=== PATIENT | male | born 1985 | race Caucasian/White ===

== ENCOUNTER 2023-10-03 05:33 | Emergency (ER) | payer OTHER, SELFPAY ==
[2023-10-03] VITALS (8 sets, daily range): BP systolic 144–162; BP diastolic 98–118; PULSE 81–96; RESP 13–22; TEMP 35.8–37; O2SAT 95–100
--- NOTE | ~2023-10-03 | XR_ITS ---
EXAMINATION: XR shoulder RT min 2V DATE: 10/03/2023 05:51 INDICATION: Right shoulder deformity. TECHNIQUE: 3 views of right shoulder were obtained. COMPARISON: Right shoulder radiographs 02/15/16 FINDINGS: There is anterior dislocation of humeral head with respect to glenoid. No fracture. There i s mild osteoarthritis of acromioclavicular joint. IMPRESSION: 1. Anterior right shoulder dislocation. Reviewed, dictated and finalized at location A. [place] PHARMACIST
--- NOTE | ~2023-10-03 | XR_ITS ---
EXAMINATION: XR shoulder RT min 2V DATE: 10/03/2023 06:07 INDICATION: Right shoulder dislocation status post reduction. TECHNIQUE: 3 views of right shoulder were obtained. COMPARISON: Right shoulder radiographs at 5:47 AM FINDINGS: Bone alignment is normal. There is impaction fracture deformity of posterolateral aspect of humeral head (Hill-Sachs fracture deformity). There is a fracture of anteroinferior glenoid (bony Ba nkart lesion). There is mild osteoarthritis of acromioclavicular joint. Glenohumeral joint is not wel l profiled. IMPRESSION: 1. Hill-Sachs fracture deformity. 2. Bony Bankart lesion. Reviewed, dictated and finalized at location A. [place]
--- NOTE | 2023-10-03 05:41 | ED.GENADULT ---
HPI - General Adult General Chief complaint: Extremity Problem,Nontraumatic Stated complaint: shoulder pain Time Seen by Provider: 10/03/23 05:36 History of Present Illness HPI narrative: Patient is a 38-year-old gentleman presents emergency department with chief complaint of right shoulder pain. Patient reports he has had prior dislocations of his right shoulder and reports that this evening he woke up from sleep moaning and his right shoulder was unable to be moved due to shoulder dislocation. The patient reports no trauma that he knows of reports that he feels kind of sore and tired patient reports that he has no numbness or tingling Related Data Allergies Allergy/AdvReac Type Severity Reaction Status Date / Time No Known Allergies Allergy Verified 10/03/23 05:36 Review of Systems Review of Systems: A 10 system review of systems was completed on the patient and is negative except for what is stated in the HPI. Nursing and ancillary documentation was reviewed. [facility] Past Medical History Medical History Healthy adult Social History Social History Smoking status: Never smoker Gender identity (if verbalized by the patient): Male Exam Narrative: GENERAL: Well-appearing, well-nourished, and in no acute distress. HEAD: Normocephalic, atraumatic. EYES: PERRLA and EOMI. ENT: Nares clear, no rhinorrhea or epistaxis. Mucous membranes moist. NECK: Supple. CHEST: Clear to auscultation. No respiratory distress. HEART: Regular rate and rhythm. No murmur heard. Normal peripheral pulses. ABDOMEN: Soft, nontender, nondistended, normal active bowel sounds. EXTREMITIES: Normal range of motion in all extremities except for right upper extremity. There is a anterior shoulder dislocation deformity of the right shoulder. No edema. SKIN: Warm, dry, no rash. NEURO: No focal deficits. Alert and oriented x3. PSYCH: Normal mood and affect. Course Vital Signs Vital signs: Vital Signs Temperature 37.0 C 10/03/23 05:28 Pulse Rate 84 10/03/23 05:28 Respiratory Rate 15 10/03/23 05:28 Blood Pressure 156/118 H 10/03/23 05:28 Pulse Oximetry 97 10/03/23 05:28 Oxygen Delivery Room Air 10/03/23 05:28 Temperature 36.4 C 10/03/23 06:12 Pulse Rate 83 10/03/23 06:12 Respiratory Rate 13 10/03/23 06:12 Blood Pressure 156/110 H 10/03/23 06:12 Pulse Oximetry 97 10/03/23 06:12 Oxygen Delivery Room Air 10/03/23 06:12 Procedures Orthopedic Joint Reduction Joint #1: Orthopedic Joint Reduction Date: 10/03/23 Orthopedic Joint Reduction Time: 06:05 Time Out Performed: Yes Side: right Joint Reduction Location: shoulder Analgesia: procedural sedation Pre-Procedure Neuro Vascular Exam: normal Shoulder Technique Used (if applicable): Charles Post-reduction neuro exam: intact Post-reduction vascular: intact Post Reduction X-Ray Obtained: Yes Post Reduction X-Ray Results: reduced Splint Applied: Yes Patient Tolerated Procedure: well Procedural Sedation Procedural Sedation #1: Presedation Evaluation: Conscious alert oriented patient with pain and deformity of the right shoulder Procedure: Close reduction of right anterior shoulder dislocation Time Out: Time-out performed immediately before procedure Informed Consent Obtained: yes Plan for Sedation: moderate sedation ASA Class: I Mallampati Classification: class I NPO Status: last solid food (hours ago) (Before bed) and last liquid food (hours ago) (Before bed) Explanation to Patient/Family: Risk/Benefits/Alternatives and Pt/Family agreed with plan Pt. Educated on Procedural Sedation: Yes Re-evaluated immediately prior: Yes Preparation: media monitor applied, pul
[2023-10-03] MEDS: SODIUM CHLORIDE 0.9% IV 1,000 ML 150 ML IV CONT (05:59)
[2023-10-03] MEDS: PROPOFOL IV EMULSION 200 MG/20 ML VIAL 80 MG IV PUSH (05:59)
--- NOTE | 2023-10-03 06:00 | PC.NURSE ---
EDP at bedside with start time of mod sedation at 0550. EDP administered 80 mg of Propofol at 0551 IVP by EDP Brianda. Additional 30 mg of Propofol administered at 0553 due to continued reduction. Additional 40 mg of Propofol administered by EDP at 0554.
[2023-10-03] MEDS: MORPHINE SULFATE (*CRX) 4 MG/ML INJ IV PUSH (06:22)
== END 2023-10-03 06:37 | disposition home or self-care (01) ==
PROVIDERS: Emergency Provider Emergency Medicine
DX: S42.291A Other displaced fracture of upper end of right humerus, initial encounter for closed fracture (principal); S42.141A Displaced fracture of glenoid cavity of scapula, right shoulder, initial encounter for closed fracture; X58.XXXA Exposure to other specified factors, initial encounter
CPT/HCPCS: 23650; 73030; 99285; J2270; J2704; J7030

== ENCOUNTER 2024-07-08 08:04 | Emergency (ER) | payer OTHER, SELFPAY ==
[2024-07-08] VITALS (28 sets, daily range): BP systolic 111–174; BP diastolic 82–112; PULSE 70–111; RESP 13–24; TEMP 36.3–36.9; O2SAT 94–100
--- NOTE | ~2024-07-08 | XR_ITS ---
EXAMINATION: XR shoulder LT min 2V DATE: 07/08/2024 08:35 INDICATION: Left shoulder dislocation. TECHNIQUE: 3 views of left shoulder were obtained. COMPARISON: None. FINDINGS: There is anterior dislocation of humeral head with respect to glenoid. There is an impactio n fracture deformity of posterolateral aspect of humeral head (Hill-Sachs fracture deformity). There is a 3 mm loose body in the glenohumeral joint. The acromioclavicular joint is normal. IMPRESSION: 1. Anterior left shoulder dislocation. 2. Hill-Sachs fracture deformity. 3. 3 mm loose body in the glenohumeral joint. Reviewed, dictated and finalized at location A. R MAINTENANCE SUPERVISOR
--- NOTE | ~2024-07-08 | XR_ITS ---
EXAMINATION: XR shoulder LT min 2V DATE: 07/08/2024 12:18 INDICATION: Left shoulder dislocation status post reduction. TECHNIQUE: 2 views of left shoulder were obtained. COMPARISON: Left shoulder radiographs at 8:20 a.m. FINDINGS: Alignment is normal. No fracture. There is mild osteoarthritis of glenohumeral joint. Acrom ioclavicular joint is normal. IMPRESSION: 1. Normal alignment at glenohumeral joint. 2. Mild glenohumeral joint osteoarthritis. Reviewed, dictated and finalized at location A. IN TECHNICIAN
[2024-07-08] MEDS: HYDROmorphone HCL INJ (*CRX) 1 MG/ML SYR 0.5 MG IV PUSH ×2 (08:19→09:15)
--- NOTE | 2024-07-08 08:48 | ED_ITS ---
HPI - General Adult General Chief complaint: Unspecified Stated complaint: shoulder dislocation Time Seen by Provider: 07/08/24 08:14 Source: patient Mode of arrival: ambulatory Limitations: no limitations History of Present Illness HPI narrative: Right hand dominant male presents with obvious left shoulder deformity. History of shoulder dislocations. Rolled over in his sleep this morning around 7:30 or 7:45am and had acute onset pain. He has previously required sedation and reduction , though most recently on the right. Has seen orthopedic surgeon Dr Guy for this. They had discussed physical therapy versus shoulder exercises at home. He had already previously undergone PT prior to this and felt confident/comfortable with the exercises to perform them at home. Denies any paresthesias, only pain. No prior surgical intervention. Drinks alcohol. Related Data Allergies Allergy/AdvReac Type Severity Reaction Status Date / Time No Known Allergies Allergy Verified 07/08/24 08:13 [facility] Past Medical History Medical History Healthy adult Recurrent shoulder dislocation Right hand dominant Family History Family History Unknown Hypertension Heart disease Arthritis Malignant neoplasm of prostate Social History Social History Social History: caffeine use Smoking status: Former smoker Alcohol intake: current Drinks per week: 2 Substance use: never Occupation/Education: occupation Additional occupation/education comments: [employer]- [employer] Gender identity (if verbalized by the patient): Male Exam Narrative: GENERAL: Well-appearing, well-nourished, in moderate acute distress. HEAD: Normocephalic, atraumatic. EYES: Non injected, non icteric ENT: Nares clear, no rhinorrhea or epistaxis. NECK: Supple. CHEST: Speaking in full sentences. No respiratory distress. HEART: Regular rate and rhythm. Strong left radial pulse. . ABDOMEN: Soft, nondistended. EXTREMITIES: No upper extremity edema. Left arm held abducted. Shoulder appears squared off. SKIN: Warm, dry, no rash. NEURO: No focal deficits. Alert and oriented x3. Sensation intact throughout left arm including over deltoid (axillary nerve) PSYCH: Normal mood and affect. Course Vital Signs Vital signs: Vital Signs Pulse Rate 83 07/08/24 08:08 Respiratory Rate 19 07/08/24 08:08 Blood Pressure 120/88 07/08/24 08:08 Pulse Oximetry 100 07/08/24 08:08 Oxygen Delivery Room Air 07/08/24 08:08 Temperature 98.4 F 07/08/24 13:36 Pulse Rate 99 07/08/24 13:36 Respiratory Rate 17 07/08/24 13:36 Blood Pressure 136/89 07/08/24 13:36 Pulse Oximetry 100 07/08/24 13:36 Oxygen Delivery Room Air 07/08/24 10:53 Oxygen Flow Rate 2 07/08/24 10:31 Procedures Orthopedic Joint Reduction Joint #1: Orthopedic Joint Reduction Date: 07/08/24 Side: left Joint Reduction Location: shoulder Analgesia: procedural sedation Pre-Procedure Neuro Vascular Exam: normal Shoulder Technique Used (if applicable): traction/counter-traction, external rotation, Milch, Charles (modified) and other Additional Comments: unsuccessful despite several attempts Joint #2: Orthopedic Joint Reduction Date: 07/08/24 Side: left Joint Reduction Location: shoulder Analgesia: procedural sedation Pre-Procedure Neuro Vascular Exam: normal Shoulder Technique Used (if applicable): traction/counter-traction, external rotation, Milch and other Additional Comments: Performed primarily by Dr Marks performing manipulation of joint with myself assisting for humeral head stabiliation and counter traction as needed. U nsuccesul after many attempts. Procedural Sedation Procedural Sedation #1: Procedural Sedation Date: 07/08/24 Presedation Evaluation: neurovascularly intact Procedure: attempted left shoulder dislocation reduction Provider Performed: sedation and procedure Equipment in Room: bag and mask, capnography, hybrid technologist, crash cart, oxygen, pulse oximeter and suction Plan for Sedation: moderate sedation ASA Class: I Mallampati Classification: class I NPO Status: last solid food (hours ago) Explanation to Patient/Family: Risk/Benefits/Alternatives Preparation: hybrid technologist applied and pulse oximeter Midazolam dose (mg): 2 IV Propofol dose (mg): 200 Procedural Sedation #2: Procedural Sedation Date: 07/08/24 Procedure: Performed by Dr Sadler with myself assisting. Dr Sadler administered ketamine initially. 50mg propofol administered by myself during dislocation reduction attempt. Equipment in Room: bag and mask, capnography, hybrid technologist, crash cart, oxygen, pulse oximeter and suction Plan for Sedation: moderate sedation NPO Status: last solid food (hours ago) Preparation: hybrid technologist applied, pulse oximeter, capnometry used, supplemental O2 applied, suction/airway equipment at bedside and IV secured Ketamine: IV Ketamine dose (mg): 80 IV Propofol dose (mg): 50 Medical Decision Making MDM Narrative Medical decision making narrative: Right hand dominant male presents with obvious left shoulder dislocation he sustained when he rolled over in bed. History of recurrent shoulder dislocations, most recently on the right and requiring procedural sedation with 140mg propofol per review of EMR. In the ED he is afebrile with VS within normal limits. Patient initially given 0.5 mg of Dilaudid upon arrival and 0.5 mg of Dilaudid prior to reduction attempt. Attempted procedural/moderate sedation and dislocation reduction at bedside. Patient was initially given 100 mg of propofol followed by an additional 50 mg and later 50mg more. In addition given 0.5 mg of Dilaudid and 2mg Versed. See above. Unsuccessful reduction attempt. Patient given additional analgesic medication. Patient underwent second procedural sedation and dislocation attempts with Dr Sadler as above. Successful sedation but unsuccessful reduction. Discussed patient with overhead distribution engineer orthopedic surgeon, whom he has previously seen in outpatient setting. Patient given additional IV analgesic medication while await Dr Guy who will attempt reduction at bedside with anesthesia performing sedation. Patient confirms last oral intake was last night, dinner. Anesthesia and Orthopedic surgeon Dr Guy come to bedside and performed sedation and dislocation reduction. See their separate documentation. Patient is neurovascularly intact afterwards. Initially somnolent but protecting airway and hemodynamically stable. Remained in the ED until alert and oriented. Patient is prescribed [id number] acetaminophen and NSAIDs. For breakthrough pain he is also prescribed short course of opiate medication and instructed on safe usage. [place] prescription monitoring program database is reviewed which does show that patient receives monthly fills of mixed amphetamine salt. Advised to follow up with Dr Guy outpatient. Differential Diagnosis Differential Diagnosis: shoulder dislocation; considered neurovascular injury; considered associated fracture Vital Signs Vital Signs: Vital Signs Pulse Rate 83 07/08/24 08:08 Respiratory Rate 19 07/08/24 08:08 Blood Pressure 120/88 07/08/24 08:08 Pulse Oximetry 100 07/08/24 08:08 Oxygen Delivery Room Air 07/08/24 08:08 Temperature 98.4 F 07/08/24 13:36 Pulse Rate 99 07/08/24 13:36 Respiratory Rate 17 07/08/24 13:36 Blood Pressure 136/89 07/08/24 13:36 Pulse Oximetry 100 07/08/24 13:36 Oxygen Delivery Room Air 07/08/24 10:53 Oxygen Flow Rate 2 07/08/24 10:31 Imaging Data Attestation: I personally reviewed and interpreted this imaging study as follows: My impression: Appreciable anterior shoulder dislocation on initial Xray Radiologist's impression: Impressions Shoulder X-Ray 07/08/24 08:36 IMPRESSION: 1. Anterior left shoulder dislocation. 2. Hill-Sachs fracture deformity. 3. 3 mm loose body in the glenohumeral joint. Shoulder X-Ray 07/08/24 12:19 IMPRESSION: 1. Normal alignment at glenohumeral joint. 2. Mild glenohumeral joint osteoarthritis. Discharge Plan Discharge Clinical Impression: Loose body in joint, Osteoarthritis of left glenohumeral joint Anterior dislocation of left shoulder Qualifiers: Encounter type: initial encounter Qualified Code(s): S43.015A - Anterior dislocation of left humerus, initial encounter Hill-Sachs fracture Qualifiers: Fracture type: closed Laterality: left Patient Disposition: Home, Self-Care Condition: Stable Instructions: Antibiotic Form, Osteoarthritis (DC), Narcotic Safety (ED), Early Postoperative or Post Injury Shoulder Exercises (ED), Procedural Sedation (ED), Shoulder Immobilizer (ED) Additional Instructions: Follow-up with orthopedic surgeon Dr. Guy. Call the office to make an appointment. Return to the emergency department with any new or worsening symptoms. Acetaminophen/Tylenol (maximum 4000 mg per day) is safe to take with NSAIDs (ibuprofen/Motrin) for pain relief. If you have breakthrough pain beyond that, a short course of opiate medications have also been prescribed. Remember that each of these tablets contains 325 mg of acetaminophen so take that into account so that you do not accidentally overdose on acetaminophen. Prescriptions: New ibuprofen 600 mg tablet 600 mg PO TID PRN (Reason: pain) Qty: 30 0RF acetaminophen 500 mg capsule 1,000 mg PO Q6H PRN (Reason: pain) Qty: 30 0RF hydrocodone-acetaminophen 5-325 mg tablet 1 tablet PO Q8H PRN (Reason: pain) Qty: 12 0RF No Action sulfamethoxazole-trimethoprim [Bactrim DS] 800-160 mg tablet 1 tablet PO Q12H Qty: 14 0RF cephalexin [Keflex] 500 mg capsule 500 mg PO Q8H Qty: 21 0RF hydrocodone-acetaminophen 5-325 mg tablet 1 tablet PO Q6H PRN (Reason: pain) 3 Days Qty: 12 0RF Follow-up/Referrals: Stewart Guy MD [Physician] - (Orthopedics) PHYSICIAN,[employer] [Primary Care Provider] - Stand Alone Forms: Work/School Release IP Time of Disposition: 13:06
[2024-07-08] MEDS: PROPOFOL IV EMULSION 200 MG/20 ML VIAL 120 MG IV PUSH (09:23)
--- NOTE | 2024-07-08 09:24 | PC.NURSE ---
0856-time out performed 0903-100mg of propofol administered by Dr Young 0905-50mg propofol administered by Dr Young 0908-50mg propofol administered by Dr Young-patient drowsy, but continues to remain stiff and pull away from provider when attempting to reduce shoulder 0913-verbal order given for 2mg versed by Dr Young and administered by Dr Young. 0914-Verbal order from Dr Young for 0.5mg of Dilaudid to be given to patient
--- NOTE | 2024-07-08 09:27 | PC.NURSE ---
0920-Dr Young was unsuccessful in reducing patient dislocation. Provider states we will do pain control until another provider comes and we can attempt again.
--- NOTE | 2024-07-08 09:29 | PC.NURSE ---
PMS intact distal to the dislocation
[2024-07-08] MEDS: HYDROmorphone HCL INJ (*CRX) 1 MG/ML SYR IV PUSH (09:44)
[2024-07-08] MEDS: MIDAZOLAM HCL (*CRX) 2 MG/2 ML VIAL IV PUSH (09:48)
[2024-07-08] MEDS: KETAMINE HCL (*CRX) 500 MG/10 ML VIAL 80 MG IV PUSH (10:26)
--- NOTE | 2024-07-08 10:35 | PC.NURSE ---
1024-80mg ketamine given by Dr Sadler 1028-50mg propofol given by Dr Young Procedure was unsuccessful
--- NOTE | 2024-07-08 10:37 | PC.NURSE ---
patient fully awake at this time
[2024-07-08] MEDS: SODIUM CHLORIDE 0.9% IV 1,000 ML 1000 ML (10:48)
[2024-07-08] MEDS: fentaNYL CITRATE INJ (*CRX) 100 MCG/2 ML VIAL 50 MCG IV PUSH (10:55)
--- NOTE | 2024-07-08 11:47 | WPDANESEPPF ---
Anes - Initial Pre Proc Eval Date/Time: 07/08/24 11:47 Pre Op Diagnosis: shoulder dislocation Patient Data Age: 39 Gender: M Height: 1.88 m Weight: 80.1 kg Last Vital Signs Temp 98 F 07/08/24 10:53 Pulse 104 H 07/08/24 10:53 Resp 17 07/08/24 10:53 BP 150/97 H 07/08/24 10:53 Pulse Ox 100 07/08/24 10:53 O2 Del Method Room Air 07/08/24 10:53 O2 Flow Rate 2 07/08/24 10:31 Allergies Allergy/AdvReac Type Severity Reaction Status Date / Time No Known Allergies Allergy Verified 07/08/24 08:13 Home Medications Medication Instructions Recorded Confirmed Type cephalexin 500 mg capsule (Keflex) 500 mg PO Q8H #21 caps 06/14/19 12/07/23 Rx sulfamethoxazole 800 1 tablet PO Q12H #14 tabs 06/14/19 12/07/23 Rx mg-trimethoprim 160 mg tablet (Bactrim DS) hydrocodone 5 mg-acetaminophen 325 1 tablet PO Q6H PRN pain 3 days 10/03/23 12/07/23 Rx mg tablet #12 tabs Patient hx anesthesia problems: none Family hx anesthesia problems: none Results Review: All pre-operative results and documents have been reviewed as part of the pre-operative evaluation. 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 Pt is ex smoker, ex vaper, still drinks ETOH perhaps 6 beers/night. Apparent prev clinical exam was neg for Terrance danlos. Will proceed w sedation for attempted reduction of shoulder disolocation. Informed Consent: The patient's anesthetic plan and its attendant risks and benefits were discussed with the patient/family/POA. Questions were solicited and answers provided to the satisfaction of the patient/family/POA.
[2024-07-08] MEDS: SODIUM CHLORIDE 0.9% IV 1,000 ML 999 ML (12:01)
--- NOTE | 2024-07-08 12:21 | P.CONOP_ITS ---
Assessment and Plan Assessment and plan (1) Anterior dislocation of left shoulder: Qualifiers: Encounter type: initial encounter Qualified Code(s): S43.015A - Anterior dislocation of left humerus, initial encounter Code(s): S43.015A - Anterior dislocation of left humerus, initial encounter Status: Acute Assessment and Plan: Acute left anterior shoulder dislocation. History of previous dislocations which patient has been able to reduce on his own. Unable to do so with this event. Presented to the emergency room. Emergency room unable to reduce the shoulder. Discussed with the patient. Recommend anesthesiology assistance for sedation with attempted repeat closed reduction. Risks, benefits and alternatives discussed in detail. Patient's questions were answered and he gives informed consent and would like to proceed. Plan Addendum: Closed reduction successful after sedation with Anesthesiology. Recommend shoulder immobilizer, pain medication. Follow-up in the orthopedic office in 1-2 weeks. History of Present Illness HPI Consult date: 07/08/24 Requesting physician: Christen Young MD Chief complaint: shoulder dislocation Narrative: 39-year-old man known to the Orthopedic service for previous shoulder dislocations. Presented to the emergency room this morning after rolling over and feeling the left shoulder dislocate. Unable to reduce on own. He has a history of previous dislocations of the left and right shoulder. Denies numbness or tingling. Review of Systems Constitutional: Constitutional: Denies fever(s) Eyes: Eyes: Denies blurry vision ENT: Reports Normal hearing present Cardiovascular: Cardiovascular: Denies chest pain and Denies dyspnea Respiratory: Respiratory: Denies dyspnea and Denies wheezing Gastrointestinal: Gastrointestinal: Denies abdominal pain Genitourinary: Genitourinary: Denies urinary urgency Musculoskeletal: Musculoskeletal: Reports as per HPI and Denies numbness Integumentary/Breasts: Skin/Breast: Denies changing lesions and Denies sores Neurologic: Reports Normal hearing present, Denies behavioral changes, Denies confusion, Denies numbness and Denies convulsions Psychiatric: Psychiatric: Denies behavioral changes, Denies confusion and Denies hallucinations Endocrine: Endocrine: Denies heat intolerance Hematologic/Lymphatic: Hematologic/Lymphatic: Denies easy bleeding Allergic/Immunologic: Allergic/Immunologic: Denies wheezing PMFSH Past Medical History Medical History Healthy adult Family History Family History Unknown Hypertension Heart disease Arthritis Malignant neoplasm of prostate Social History Social History Social History: caffeine use Smoking status: Former smoker Alcohol intake: current Drinks per week: 2 Substance use: never Occupation/Education: occupation Additional occupation/education comments: [employer]- [place] [employer] Gender identity (if verbalized by the patient): Male Meds Home Medications and Allergies Home Medications Medication Instructions Recorded Confirmed Type cephalexin 500 mg capsule (Keflex) 500 mg PO Q8H #21 caps 06/14/19 12/07/23 Rx sulfamethoxazole 800 1 tablet PO Q12H #14 tabs 06/14/19 12/07/23 Rx mg-trimethoprim 160 mg tablet (Bactrim DS) hydrocodone 5 mg-acetaminophen 325 1 tablet PO Q6H PRN pain 3 days 10/03/23 12/07/23 Rx mg tablet #12 tabs Allergies Allergy/AdvReac Type Severity Reaction Status Date / Time No Known Allergies Allergy Verified 07/08/24 08:13 Vital Signs Vital Signs - 24 hr 07/08/24 08:08 07/08/24 08:14 07/08/24 08:50 Temperature 97.6 F Pulse Rate 83 70 86 Pulse Rate [Monitor] Respiratory Rate 19 24 H Blood Pressure 120/88 127/92 H Blood Pressure [Right Arm] Pulse Oximetry 100 100 Oxygen Delivery Room Air Oxygen Flow Rate 07/08/24 08:56 07/08/24 09:04 07/08/24 09:08 Temperature 97.6 F 97.6 F 97.3 F L Pulse Rate Pulse Rate [Monitor] 86 85 94 Respiratory Rate 20 13 15 Blood Pressure Blood Pressure [Right Arm] 111/82 128/90 132/98 H Pulse Oximetry 96 100 94 Oxygen Delivery Room Air Nasal Cannula Nasal Cannula Oxygen Flow Rate 2 2 07/08/24 09:13 07/08/24 09:18 07/08/24 09:20 Temperature 97.5 F L 97.5 F L 97.6 F Pulse Rate Pulse Rate [Monitor] 88 86 87 Respiratory Rate 21 H 24 H 20 Blood Pressure Blood Pressure [Right Arm] 144/98 H 155/109 H 140/99 H Pulse Oximetry 98 99 100 Oxygen Delivery Nasal Cannula Nasal Cannula Nasal Cannula Oxygen Flow Rate 3 3 2 07/08/24 09:34 07/08/24 10:22 07/08/24 10:26 Temperature 97.5 F L 97.6 F 97.7 F Pulse Rate Pulse Rate [Monitor] 100 95 100 Respiratory Rate 19 15 21 H Blood Pressure Blood Pressure [Right Arm] 133/94 H 144/104 H 149/107 H Pulse Oximetry 100 99 100 Oxygen Delivery Room Air Room Air Nasal Cannula Oxygen Flow Rate 2 07/08/24 10:31 07/08/24 10:38 07/08/24 10:53 Temperature 97.7 F 98 F Pulse Rate Pulse Rate [Monitor] 99 111 H 104 H Respiratory Rate 24 H 19 17 Blood Pressure Blood Pressure [Right Arm] 160/112 H 174/110 H 150/97 H Pulse Oximetry 98 100 100 Oxygen Delivery Nasal Cannula Room Air Room Air Oxygen Flow Rate 2 Exam Const: General: healthy appearing; No in distress or confusion Orientation/consciousness: oriented to person, oriented to place, oriented to time and No confusion HENMT: Head: normal to inspection, normocephalic and atraumatic Eyes: Conjunctivae: conjunctivae normal Sclera: sclerae normal Neck: Neck: supple and nontender Resp: Effort & Inspection: normal respiratory effort and no audible wheezes Cardio: Rate: regular rate Rhythm: regular rhythm Skin: General skin exam: no rashes or lesions noted Neuro: General: oriented to person, oriented to place, oriented to time and No confusion Extrem: Right upper extremity: shoulder/upper arm axillary nerve sensory funct ion normal, normal ROM (FF 130, Abd 120, ER 70, IR T7) and other (RC 5/5, Bicep 5/5, Deltoid 5/5, ER 5/5); no tenderness and no swelling, elbow/forearm normal ROM; no tenderness and no swelling, wrist normal ROM and radial pulse present; no tenderness and Extremity exam: right hand neuromotor exam normal wrist extension normal, thumb opposition normal, thumb IP flexion normal and fingers 2-5 ABduction normal, neurosensory exam normal radial nerve sensory function normal, ulnar nerve sensory function normal, median nerve sensory function normal and digital nerve sensory function normal and vascular exam radial pulse present and normal capillary refill; no tenderness, no swelling and no crepitus Left upper extremity: normal to inspection, shoulder/upper arm abnormal to inspection obvious dislocation and loss of deltoid contour, tenderness of the A- C joint, of the proximal humerus, over the subacromial bursa and other (anterolateral acromion, gh joint), axillary nerve sensory function normal and abnormal ROM pain with active ROM in ABduction and in internal rotation, pain with passive ROM in internal rotation and external rotation- and with range as follows ( Unable to range due to injury); no swelling, elbow/forearm normal ROM; no tenderness and no swelling, wrist normal ROM and radial pulse present; no tenderness and hand neuromotor exam normal Details: wrist extension normal and thumb IP flexion normal, neurosensory exam normal Details: radial nerve sensory function normal, ulnar nerve sensory function normal and median nerve sensory function normal, tendon exam normal Location: of all digits and vascular exam normal capillary refill; no tenderness Right lower extremity: normal to inspection Left lower extremity: normal to inspection Psych: Affect: normal affect Results Labs Labs: All other labs normal. Diagnostic results Shoulder x-ray: image reviewed ( left shoulder radiographs show anterior dislocation of the humeral head.)
--- NOTE | 2024-07-08 12:25 | W.PM.PROC2 ---
Procedure Note - Detailed Date of Procedure 07/08/24 Pre-op Diagnosis Left shoulder dislocation Post-op Diagnosis Same Procedure Performed close reduction left shoulder Surgeon Stewart Guy MD Anesthesia MAC Indications 39-year-old with irreducible left shoulder. Indicated for sedation and attempted closed reduction. Findings Reduction performed without difficulty after sedation. Post reduction while patient under sedation able to achieve 90? of abduction and 70? external rotation with good stability of the shoulder. Palpable radial pulse. Description of Procedure Informed consent given by the patient. Patient and operative side confirmed. Time-out performed. IV sedation done by the anesthesiology providers. After successful sedation traction counter traction pulled on the left arm and palpable reduction felt. Shoulder taken through gentle range of motion and noted to be stable. Palpable radial pulse throughout procedure. post reduction radiographs confirm reduction and good alignment. Complications None Condition Stable Disposition Other (ER rovery, then home) [facility] Billing Surgery - Charge Forward: Surgery Billing ([id number])
--- NOTE | 2024-07-08 12:34 | PC.NURSE ---
per anesthesia last dose of sedation medication is 1205. pt received propofol as well as 2 of versed during the procedure. patient is drowsy but oriented x 4. immobilizer placed on left shoulder.
== END 2024-07-08 13:21 | disposition home or self-care (01) ==
PROVIDERS: Emergency Provider Student in an Organized Health Care Education/Training Program
DX: M24.412 Recurrent dislocation, left shoulder (principal); Z87.891 Personal history of nicotine dependence; M19.012 Primary osteoarthritis, left shoulder; M24.012 Loose body in left shoulder
CPT/HCPCS: 23650; 73030; 96374; 96375; 99285; J1171; J2250; J2704; J3010; J7030

== ENCOUNTER 2024-08-06 08:22 | Emergency (ER) | payer OTHER, SELFPAY ==
[2024-08-06] VITALS (16 sets, daily range): BP systolic 117–170; BP diastolic 78–110; PULSE 95–115; RESP 15–25; TEMP 36.4–36.6; O2SAT 96–100
--- NOTE | ~2024-08-06 | XR_ITS ---
XR shoulder LT min 2V DATE: 08/06/2024 08:40 INDICATION: Dislocation TECHNIQUE: 2 views of left shoulder COMPARISON: None FINDINGS: There is anterior glenohumeral dislocation with humeral head and subcoracoid position. No a pparent fractures identified. Normal alignment of the chronic reticular joint. IMPRESSION: Anterior left glenohumeral dislocation Reviewed, dictated and finalized at location A. IFIED ADDICTION COUNSELOR
--- NOTE | ~2024-08-06 | XR_ITS ---
XR shoulder LT min 2V DATE: 08/06/2024 09:10 INDICATION: Postop reduction examination TECHNIQUE: 3 portable views COMPARISON: 08/06/2024 prereduction left shoulder FINDINGS: There is reduction of the anterior glenohumeral joint dislocation. No fracture or dislocati on is detected. Mild glenohumeral osteoarthritis. IMPRESSION: Reduction of anterior glenohumeral dislocation Reviewed, dictated and finalized at location A. RN
--- NOTE | 2024-08-06 08:41 | PC.NURSE ---
Signed consent for L shoulder reduction performed by Dr. Hobbs on pts chart.
--- NOTE | 2024-08-06 09:08 | PC.NURSE ---
0858 80 mg of Propofol administered by Dr. Hobbs.
--- NOTE | 2024-08-06 09:29 | ED_ITS ---
HPI - General Adult General Chief complaint: Fall Stated complaint: shoulder dislocation Time Seen by Provider: 08/06/24 08:26 History of Present Illness HPI narrative: Patient is a 39-year-old male who presents ER with left shoulder dislocation. Had a recent dislocation last month. Hold off a couch causing injury. Denies head trauma or LOC. No numbness or tingling to the affected extremity. Has been doing stretching exercises in attempt to strengthen the shoulder. Related Data Allergies Allergy/AdvReac Type Severity Reaction Status Date / Time No Known Allergies Allergy Verified 07/08/24 08:13 Review of Systems Review of Systems: All systems reviewed & are unremarkable except as noted in HPI and below Constitutional: Constitutional: Reports no additional constitutional complaints Musculoskeletal: Musculoskeletal: Reports no additional musculoskeletal complaints Neurologic: Reports system reviewed and no additional complaints, except as documented PMFSH Past Medical History Medical History Healthy adult Recurrent shoulder dislocation Right hand dominant Family History Family History Unknown Hypertension Heart disease Arthritis Malignant neoplasm of prostate Social History Social History Social History: caffeine use Smoking status: Former smoker Alcohol intake: current Drinks per week: 2 Substance use: never Occupation/Education: occupation Additional occupation/education comments: [employer]- [employer] Gender identity (if verbalized by the patient): Male Exam Narrative: GENERAL: Well-appearing, well-nourished, and in no acute distress. HEAD: Normocephalic, atraumatic. ENT: Mucous membranes moist. CHEST: Clear to auscultation. No respiratory distress. HEART: Regular rate and rhythm. Normal peripheral pulses. EXTREMITIES: Deformity left shoulder with limited range of motion. Bulging an teriorly consistent with anterior dislocation. No right upper extremity deformity. Neurovascular intact distal to the shoulder. SKIN: Warm, dry, no rash. NEURO: Alert and oriented x3. PSYCH: Normal mood and affect. Course Course Emergency Course: Tolerated reduction without issue. Placed in shoulder immobilizer. Discharged home with Orthopedic surgery follow-up. Vital Signs Vital signs: Vital Signs Temperature 97.8 F 08/06/24 08:10 Pulse Rate 115 H 08/06/24 08:10 Respiratory Rate 16 08/06/24 08:10 Blood Pressure 170/107 H 08/06/24 08:10 Pulse Oximetry 98 08/06/24 08:10 Oxygen Delivery Room Air 08/06/24 08:10 Temperature 97.6 F 08/06/24 08:58 Pulse Rate 109 H 08/06/24 09:31 Respiratory Rate 25 H 08/06/24 09:31 Blood Pressure 122/96 H 08/06/24 09:31 Pulse Oximetry 100 08/06/24 09:31 Oxygen Delivery Nasal Cannula 08/06/24 08:58 Oxygen Flow Rate 2 08/06/24 08:58 Procedures Orthopedic Joint Reduction Joint #1: Orthopedic Joint Reduction Date: 08/06/24 Orthopedic Joint Reduction Time: 08:58 Time Out Performed: Yes Side: left Joint Reduction Location: shoulder Analgesia: procedural sedation Pre-Procedure Neuro Vascular Exam: normal Shoulder Technique Used (if applicable): external rotation Post-reduction neuro exam: intact Post-reduction vascular: intact Post Reduction X-Ray Obtained: Yes Post Reduction X-Ray Results: reduced Splint Applied: Yes Patient Tolerated Procedure: well Procedural Sedation Procedural Sedation #1: Procedural Sedation Date: 08/06/24 Procedural Sedation Time: 08:58 Presedation Evaluation: A&0 x 4 Procedure: left shoulder reduction Informed Consent Obtained: yes Equipment in Room: bag and mask, capnography, butcher's assistant, crash cart, oxygen, pulse oximeter and suction Plan for Sedation: moderate sedation ASA Class: I Mallampati Classification: class I NPO Status: last solid food (hours ago) (last night) Explanation to Patient/Family: Risk/Benefits/Alternatives and Pt/Family agreed with plan Pt. Educated on Procedural Sedation: Yes Re-evaluated immediately prior: Yes Preparation: butcher's assistant applied, pulse oximeter, capnometry used, supplemental O2 applied, reversal agents at bedside, suction/airway equipment at bedside and IV secured IV Propofol dose (mg): 80 Patient Tolerated Procedure: well Complications: none Medical Decision Making Vital Signs Vital Signs: Vital Signs Temperature 97.8 F 08/06/24 08:10 Pulse Rate 115 H 08/06/24 08:10 Respiratory Rate 16 08/06/24 08:10 Blood Pressure 170/107 H 08/06/24 08:10 Pulse Oximetry 98 08/06/24 08:10 Oxygen Delivery Room Air 08/06/24 08:10 Temperature 97.6 F 08/06/24 08:58 Pulse Rate 109 H 08/06/24 09:31 Respiratory Rate 25 H 08/06/24 09:31 Blood Pressure 122/96 H 08/06/24 09:31 Pulse Oximetry 100 08/06/24 09:31 Oxygen Delivery Nasal Cannula 08/06/24 08:58 Oxygen Flow Rate 2 08/06/24 08:58 Imaging Data Radiologist's impression: ITS Impressions Shoulder X-Ray 08/06/24 08:42 IMPRESSION: Anterior left glenohumeral dislocation Shoulder X-Ray 08/06/24 09:47 IMPRESSION: Reduction of anterior glenohumeral dislocation Discharge Plan Discharge Clinical Impression: Anterior shoulder dislocation Patient Disposition: Home, Self-Care Condition: Stable Instructions: Shoulder Dislocation (ED), Shoulder Immobilizer (ED) Additional Instructions: Return the ER if you suffered a new injury, you have chest pain shortness of breath, you have new numbness or weakness to your arm, or you have additional concerns. Patient Language: Japanese Prescriptions: New hydrocodone-acetaminophen 5-325 mg tablet 1 tablet PO Q6H PRN (Reason: pain) Qty: 12 0RF No Action ibuprofen 600 mg tablet 600 mg PO TID PRN (Reason: pain) Qty: 30 0RF acetaminophen 500 mg capsule 1,000 mg PO Q6H PRN (Reason: pain) Qty: 30 0RF hydrocodone-acetaminophen 5-325 mg tablet 1 tablet PO Q8H PRN (Reason: pain) Qty: 12 0RF sulfamethoxazole-trimethoprim [Bactrim DS] 800-160 mg tablet 1 tablet PO Q12H Qty: 14 0RF cephalexin [Keflex] 500 mg capsule 500 mg PO Q8H Qty: 21 0RF hydrocodone-acetaminophen 5-325 mg tablet 1 tablet PO Q6H PRN (Reason: pain) 3 Days Qty: 12 0RF Follow-up/Referrals: Stewart Guy MD [Physician] - 1 Week PHYSICIAN,VENDING STAND SUPERVISOR [Primary Care Provider] -
--- OUTSIDE RECORDS SUMMARY | 2024-08-13 05:08 | XMS_ITS | Continuity of Care Document ---
Author Organization [facility] Address [address] [place] [address] Care Team Providers Care Car Usher Name Role Phone PHYSICIAN, PHARMACY TECHNOLOGY INSTRUCTOR Primary Care Provider Unavail able Christen Young MD Emergency Provider Cleveland Ramos DO Other Provider [phone] Care Teams Patient Care Team Team Status: Active Member Role Status Dates PHARMACY TECHNOLOGY INSTRUCTOR PHYSICIAN Primary Care Provider Active Visit Care Team Team Status: Inactive Member Role Status Dates PHARMACY TECHNOLOGY INSTRUCTOR PHYSICIAN Primary Care Provider Active Christen Young MD Emergency Provider Active Cleveland Ramos DO Other Provider Active Chief Complaint and Reason for Visit Chief Complaint Admit Date shoulder dislocation July 08, 2024 8:04am Reason for Referral Referral Date Requested Appointment Date Refer ral Reason Orthopedics Allergies, Adverse Reactions, Alerts No known allergies Social History Smoking Status Status Start Date End Date Date of Observa tion Ex-smoker (finding) December 07, 2023 1:45pm Observation Status Observation Response Date of Response Gender Identity (if Verbalized by the Patient) M albaro October 12, 2023 2:02pm alcohol intake current October 12, 2023 2:02pm Patient Sex Male July 08 1:41pm Assigned Sex Male February 28 Family History Relationship Condition Age at Onset Recorded Date/T aliza Not Specified Hypertension Unknown Heart disease Unknown Arthritis Unknown Malignant neoplasm of prostate Unknown Problems Active Problems Medical Problem Onset Date Status Anterior dislocation of left shoulder Unknown Active Hill-Sachs fracture Unknown Active Loose body in joint Unknown Active Inactive/Resolved Problems Medical Problem Onset Date Status Hill Sachs deformity, right Unknown Reso lved Dislocation of shoulder, right, closed Unknown Resolved Cellulitis of foot, left Unknown Resolve d Medications Medication Status Dose Units Route Directions Qty Days St art Date Stop Date End Date Instructions Adherence Ibuprofen 600 mg tablet Active 600 MG PO THREE TIMES A DAY as needed for pain 30 Decemb er 2023 12:00a m Acetaminoph en 500 mg capsule Active 1000 MG PO Q6H as needed for pain 30 Dece er 2023 12:00a m Hydrocodone -Acetaminop hen 5-325 mg tablet Active 1 TABLET PO Q8H as needed for pain 12 Dece er 2023 Sulfamethox azole-Trime thoprim (Bactrim Ds) 800-160 mg tablet Active 1 TABLET PO Q12H 14 er 2018 12:00a m Cephalexin (Keflex) 500 mg capsule Active 500 MG PO Q8H er 2018 12:00a m Hydrocodone -Acetaminop hen 5-325 mg tablet Active 1 TABLET PO Q6H as needed for pain 12 October 03, 2023 Immunizations Immunization Event Date Not Given Reason Dose Number Acute Care Physical Therapist Lot Number Vaccine Information Statement (VIS) Detail Administration Location Tetanus, Diphtheria, Pertussis (Tdap) June 14, 2019 [id number] Procedures Procedure Notes Author Stewart Guy [facility] Note Date/Time July 08, 2024 1 2:29pm [facility] [address] [place] [address] Operative Note Signed Patient: Sesar Wilson MR#: [id number] : 1985 Acct:[id number] Age: 39 ADM Date: 07/08/24 Loc: ANHED Attending Dr: cc: Christen Young MD; PHARMACY TECHNOLOGY INSTRUCTOR PHYSICIAN~ Procedure Note - Detailed Date of Procedure 07/08/24 Pre-op Diagnosis Left shoulder dislocation Post-op Diagnosis Same Procedure Performed close reduction left shoulder Surgeon Stewart Guy MD Anesthesia MAC Indications 39-year-old with irreducible left shoulder. Indicated for sedation and attempted closed reduction. Findings Reduction performed without difficulty after sedation. Post reduction while patient under sedation able to achieve 90??? of abduction and 70??? external rotation with good stability of the shoulder. Palpable radial pulse. Description of Procedure Informed consent given by the patient. Patient and operative side confirmed. Time-out performed. IV sedation done by the anesthesiology providers. After successful sedation traction counter traction pulled on the left arm and palpable reduction felt. Shoulder taken through gentle range of motion and noted to be stable. Palpable radial pulse throughout procedure. post reduction radiographs confirm reduction and good alignment. Complications None Condition Stable Disposition Other (ER rovery, then home) [facility] Billing Surgery - Charge Forward: Surgery Billing (71933) This report may have been done utilizing a voice recognition system. Attempts have been made to correct errors. However, there may be uncorrected grammatical,spelling, and recognition errors present. Report Initialized date/time: Stewart Guy MD 07/08/241228 Electronically signed by: Stewart Guy MD 07/08/241228 Relevant Diagnostic Tests and/or Laboratory Data Diagnostic Imaging Reports Author Blas Chanel [facility] Report Date/Time July 08, 2024 8 :37[place] [address] [place], [place] [id number] XRay Report Signed Patient: Sesar Wilson : 1985 MR#: [id number] Age: 39 Acct:[id number] Loc: ANHED ADM Date: 07/08/[address]: Ordering Physician: Christen Young MD Date of Service: 07/08/24 Procedure(s): XR shoulder LT min 2V Accession Number(s): [id number] cc: Christen Young MD; PHARMACY TECHNOLOGY INSTRUCTOR PHYSICIAN~ EXAMINATION: XR shoulder LT min 2V DATE: 07/08/2024 08:35 INDICATION: Left shoulder dislocation. TECHNIQUE: 3 views of left shoulder were obtained. COMPARISON: None. FINDINGS: There is anterior dislocation of humeral head with respect to glenoid.There is an impaction fracture deformity of posterolateral aspect of humeral head (Hill-Sachs fracture deformity). There is a 3 mm loose body in the glenohumeral joint. The acromioclavicular joint is normal. IMPRESSION: 1. Anterior left shoulder dislocation. 2. Hill-Sachs fracture deformity. 3. 3 mm loose body in the glenohumeral joint. Reviewed, dictated and finalized at location A. IFIED ADAPTED PHYSICAL EDUCATOR Dictated By: Blas Chanel MD 07/08/24 0836 Signed By: <Electronically signed by Blas Chanel MD in OV> 07/08/24 0837 Author Blas Chanel [facility] Report Date/Time July 08, 2024 1 2:21pm [facility] [address] [place] [address] XRay Report Signed Patient: Sesar Wilson : 1985 MR#: [id number] Age: 39 Acct:[id number] Loc: ANHED ADM Date: 07/08/[address]: Ordering Physician: Christen Young MD Date of Service: 07/08/24 Procedure(s): XR shoulder LT min 2V Accession Number(s): [id number] cc: Christen Young MD; PHARMACY TECHNOLOGY INSTRUCTOR PHYSICIAN~ EXAMINATION: XR shoulder LT min 2V DATE: 07/08/2024 12:18 INDICATION: Left shoulder dislocation status post reduction. TECHNIQUE: 2 views of left shoulder were obtained. COMPARISON: Left shoulder radiographs at 8:20 a.m. FINDINGS: Alignment is normal. No fracture. There is mild osteoarthritis of glenohumeral joint. Acromioclavicular joint is normal. IMPRESSION: 1. Normal alignment at glenohumeral joint. 2. Mild glenohumeral joint osteoarthritis. Reviewed, dictated and finalized at location A. IFIED ADAPTED PHYSICAL EDUCATOR Dictated By: Blas Chanel MD 07/08/24 1219 Signed By: <Electronically signed by Blas Chanel MD in OV> 07/08/24 1221 Vital Signs Vital Reading Result Reference Range Collection Date/Time Height 74 [in_i] July 08, 2 024 8:08am Weight 80.10 kg July 08, 2 024 8:08am Body Temperature 98.4 [degF] 97.6-99.6 July 1:36pm Heart Rate 99 /min 60-100 July 08 1:36pm Respiratory rate 17 /min 12-20 July 1:36pm Oxygen saturation by Pulse oximetry 100 % 90-100 July 08, 2024 1 :36pm BP Systolic 136 mm[Hg] 100-140 July 08 024 1:36pm BP Diastolic 89 mm[Hg] 60-90 July 08 1:36pm Inhaled oxygen flow rate 2 L/min Jul 10:31am Insurance Providers Guarantor Sesar Wilson Address [address] [place] [address] Contact Info. Home Phone: Payer Policy Id Coverage Id Subscriber's Name Subscriber Id Effective Date Expiration Date Aetna [id number] Sesar Poncho Wilson [id number] Cigna [id number] [place] Wilson [id number] Conversion Insurance [id number] Sesar Poncho Wilson [id number] 2014 Self Pay Self N/A Encounters Encounter Location(s) Arrival/Admit Date Discharge/Depart Date Provider(s) Departed Emergency [facility] Emergency Department July 08, 2024 8:04am July 08, 2024 1:21pm Mental Status Observation Response Date Recorded oriented to person Yes July 08, 2024 12:25pm oriented to place Yes July 08, 2024 12:25pm oriented to time Yes July 08 12:25pm Plan of Treatment Future Tests Future scheduled test information is unavailable Pending Tests Pending diagnostic test information is unavailable Future Visits Future appointment information is unavailable Referrals to Other Providers Reason for Referral Referral Start Date Provider Provider Contact Information Provider Address Orthopedics Stewart Guy MD Email: [email or web address] Work Phone: [address] [place] [address] PHARMACY TECHNOLOGY INSTRUCTOR PHYSICIAN Future Procedures Future procedure information is unavailable Future Medications Future medication information is unavailable Patient Instructions Instruction Admit Date Antibiotic Form Osteoarthritis (DC) Narcotic Safety (ED) Early Postoperative or Post Injury Shoulder Exercises (ED) Procedural Sedation (ED) Shoulder Immobilizer (ED) July 08, 2024 8:04am Hospital Discharge Instructions Additional Instructions Follow-up with orthopedic surgeon Dr. Guy. Call the office to make an appointment. Return to the emergency department with any new or worsening symptoms. Acetaminophen/Tylenol (maximum 4000 mg per day) is safe to take with NSAIDs (ibuprofen/Motrin) for pain relief. If you have breakthrough pain beyond that, a short course of opiate medications have also been prescribed. Remember that each of these tablets contains 325 mg of acetaminophen so take that into account so that you do not accidentally overdose on acetaminophen. Consultation Note Author Stewart Guy [facility] Note Date/Time July 08, 2024 1 2:25pm [facility] [address] [place] [address] Orthopedic Consult Note Signed Patient: Sesar Wilson MR#: [id number] : 1985 Acct:[id number] Age: 39 ADM Date: 07/08/24 Loc: ANHED Attending Dr: cc: Christen Young MD; PHARMACY TECHNOLOGY INSTRUCTOR PHYSICIAN~ Assessment and Plan Assessment and plan (1) Anterior dislocation of left shoulder: Qualifiers: Encounter type: initial encounter Qualified Code(s): S43.015A - Anterior dislocation of left humerus, initial encounter Code(s): S43.015A - Anterior dislocation of left humerus, initial encounter Status: Acute Assessment and Plan: Acute left anterior shoulder dislocation. History of previous dislocations which patient has been able to reduce on his own. Unable to do so with this event. Presented to the emergency room. Emergency room unable to reduce the shoulder. Discussed with the patient. Recommend anesthesiology assistance for sedation with attempted repeat closed reduction. Risks, benefits and alternatives discussed in detail. Patient's questions were answered and he gives informed consent and would like to proceed. Plan Addendum: Closed reduction successful after sedation with Anesthesiology. Recommend shoulder immobilizer, pain medication. Follow-up in the orthopedic office in 1-2 weeks. History of Present Illness HPI Consult date: 07/08/24 Requesting physician: Christen Young MD Chief complaint: shoulder dislocation Narrative: 39-year-old man known to the Orthopedic service for previous shoulder dislocations. Presented to the emergency room this morning after rolling over and feeling the left shoulder dislocate. Unable to reduce on own. He has a history of previous dislocations of the left and right shoulder. Denies numbness or tingling. Review of Systems Constitutional: Constitutional: Denies fever(s) Eyes: Eyes: Denies blurry vision ENT: Reports Normal hearing present Cardiovascular: Cardiovascular: Denies chest pain and Denies dyspnea Respiratory: Respiratory: Denies dyspnea and Denies wheezing Gastrointestinal: Gastrointestinal: Denies abdominal pain Genitourinary: Genitourinary: Denies urinary urgency Musculoskeletal: Musculoskeletal: Reports as per HPI and Denies numbness Integumentary/Breasts: Skin/Breast: Denies changing lesions and Denies sores Neurologic: Reports Normal hearing present, Denies behavioral changes, Denies confusion, Denies numbness and Denies convulsions Psychiatric: Psychiatric: Denies behavioral changes, Denies confusion and Denies hallucinations Endocrine: Endocrine: Denies heat intolerance Hematologic/Lymphatic: Hematologic/Lymphatic: Denies easy bleeding Allergic/Immunologic: Allergic/Immunologic: Denies wheezing [facility] Past Medical History Medical History Healthy adult Family History Family History Unknown Hypertension Heart disease Arthritis Malignant neoplasm of prostate Social History Social History Social History: caffeine use Smoking status: Former smoker Alcohol intake: current Drinks per week: 2 Substance use: never Occupation/Education: occupation 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- [employer] Gender identity (if verbalized by the patient): Male Meds Home Medications and Allergies Home Medications Medication Instructions Recorded Confirmed Type cephalexin 500 mg capsule (Keflex) 500 mg PO Q8H #21 caps 06/14/19 12/07/23 Rx sulfamethoxazole 800 1 tablet PO Q12H #14 tabs 06/14/19 12/07/23 Rx mg-trimethoprim 160 mg tablet (Bactrim DS) hydrocodone 5 mg-acetaminophen 325 1 tablet PO Q6H PRN pain 3 days 10/03/23 12/07/23 Rx mg tablet #12 tabs Allergies Allergy/AdvReac Type Severity Reaction Status Date / Time No Known Allergies Allergy Verified 07/08/24 08:13 Vital Signs Vital Signs - 24 hr 07/08/24 08:08 07/08/24 08:14 07/08/24 08:50 Temperature 97.6 F Pulse Rate 83 70 86 Pulse Rate [Monitor] Respiratory Rate 19 24 H Blood Pressure 120/88 127/92 H Blood Pressure [Right Arm] Pulse Oximetry 100 100 Oxygen Delivery Room Air Oxygen Flow Rate 07/08/24 08:56 07/08/24 09:04 07/08/24 09:08 Temperature 97.6 F 97.6 F 97.3 F L Pulse Rate Pulse Rate [Monitor] 86 85 94 Respiratory Rate 20 13 15 Blood Pressure Blood Pressure [Right Arm] 111/82 128/90 132/98 H Pulse Oximetry 96 100 94 Oxygen Delivery Room Air Nasal Cannula Nasal Cannula Oxygen Flow Rate 2 2 07/08/24 09:13 07/08/24 09:18 07/08/24 09:20 Temperature 97.5 F L 97.5 F L 97.6 F Pulse Rate Pulse Rate [Monitor] 88 86 87 Respiratory Rate 21 H 24 H 20 Blood Pressure Blood Pressure [Right Arm] 144/98 H 155/109 H 140/99 H Pulse Oximetry 98 99 100 Oxygen Delivery Nasal Cannula Nasal Cannula Nasal Cannula Oxygen Flow Rate 3 3 2 07/08/24 09:34 07/08/24 10:22 07/08/24 10:26 Temperature 97.5 F L 97.6 F 97.7 F Pulse Rate Pulse Rate [Monitor] 100 95 100 Respiratory Rate 19 15 21 H Blood Pressure Blood Pressure [Right Arm] 133/94 H 144/104 H 149/107 H Pulse Oximetry 100 99 100 Oxygen Delivery Room Air Room Air Nasal Cannula Oxygen Flow Rate 2 07/08/24 10:31 07/08/24 10:38 07/08/24 10:53 Temperature 97.7 F 98 F Pulse Rate Pulse Rate [Monitor] 99 111 H 104 H Respiratory Rate 24 H 19 17 Blood Pressure Blood Pressure [Right Arm] 160/112 H 174/110 H 150/97 H Pulse Oximetry 98 100 100 Oxygen Delivery Nasal Cannula Room Air Room Air Oxygen Flow Rate 2 Exam Const: General: healthy appearing; No in distress or confusion Orientation/consciousness: oriented to person, oriented to place, oriented to time and No confusion HENMT: Head: normal to inspection, normocephalic and atraumatic Eyes: Conjunctivae: conjunctivae normal Sclera: sclerae normal Neck: Neck: supple and nontender Resp: Effort & Inspection: normal respiratory effort and no audible wheezes Cardio: Rate: regular rate Rhythm: regular rhythm Skin: General skin exam: no rashes or lesions noted Neuro: General: oriented to person, oriented to place, oriented to time and Noconfusion Extrem: Right upper extremity: shoulder/upper arm axillary nerve sensory function normal, normal ROM (FF 130, Abd 120, ER 70, IR T7) and other (RC 5/5, Bicep 5/5, Deltoid 5/5, ER 5/5); no tenderness and no swelling, elbow/forearm normal ROM; no tenderness and no swelling, wrist normal ROM and radial pulse present; no tenderness and Extremity exam: right hand neuromotor exam normal wrist extension normal, thumb opposition normal, thumb IP flexion normal and fingers 2-5 ABduction normal, neurosensory exam normal radial nerve sensory function normal, ulnar nerve sensory function normal, median nerve sensory function normal and digital nerve sensory function normal and vascular exam radial pulse present and normal capillary refill; no tenderness, no swelling andno crepitus Left upper extremity: normal to inspection, shoulder/upper arm abnormal to inspection obvious dislocation and loss of deltoid contour, tenderness of the A-C joint, of the proximal humerus, over the subacromial bursaand other (anterolateral acromion, gh joint), axillary nerve sensory function normal and abnormal ROM pain with active ROM in ABduction and in internal rotation, pain with passive ROM in internal rotation and external rotation- and with range as follows ( Unable to range due to injury); no swelling, elbow/forearm normal ROM; no tenderness and no swelling, wrist normal ROM and radial pulse present; no tenderness and hand neuromotor exam normal Details: wrist extension normal and thumb IP flexion normal, neurosensory exam normal Details: radial nerve sensory function normal, ulnar nerve sensory function normal and median nerve sensory function normal, tendon exam normal Location: ofall digits and vascular exam normal capillary refill; no tenderness Right lower extremity: normal to inspection Left lower extremity: normal to inspection Psych: Affect: normal affect Results Labs Labs: All other labs normal. Diagnostic results Shoulder x-ray: image reviewed ( left shoulder radiographs show anterior dislocation of the humeral head.) This report may have been done utilizing a voice recognition system. Attempts have been made to correct errors. However, there may be uncorrected grammatical,spelling, and recognition errors present. Report Initialized date/time: Stewart Guy MD 07/08/241 Electronically signed by: Stewart Guy MD 07/08/24 1225 Progress Note Author Brenden Kaufman [facility] Note Date/Time July 08, 2024 1 2:19pm [facility] [address] [place], [place] [id number] Anesthesiology Progress Note Signed with Addenda Patient: Sesar Wilson MR#: [id number] : 1985 Acct:[id number] Age: 39 ADM Date: 07/08/24 Loc: ANHED Attending Dr: cc: ~ ADDENDUM Actual ASA 3. Addendum Documented By: Brenden Kaufman DO07/08/248 Addendum Signed By: <Electronically signed by Brenden Kaufman DO> 07/08/248 Anes - Initial Pre Proc Eval Date/Time: 07/08/24 11:47 Pre Op Diagnosis: shoulder dislocation Patient Data Age: 39 Gender: M Height: 1.88 m Weight: 80.1 kg Last Vital Signs Temp 98 F 07/08/24 10:53 Pulse 104 H 07/08/24 10:53 Resp 17 07/08/24 10:53 BP 150/97 H 07/08/24 10:53 Pulse Ox 100 07/08/24 10:53 O2 Del Method Room Air 07/08/24 10:53 O2 Flow Rate 2 07/08/24 10:31 Allergies Allergy/AdvReac Type Severity Reaction Status Date / Time No Known Allergies Allergy Verified 07/08/24 08:13 Home Medications Medication Instructions Recorded Confirmed Type cephalexin 500 mg capsule (Keflex) 500 mg PO Q8H #21 caps 06/14/19 12/07/23 Rx sulfamethoxazole 800 1 tablet PO Q12H #14 tabs 06/14/19 12/07/23 Rx mg-trimethoprim 160 mg tablet (Bactrim DS) hydrocodone 5 mg-acetaminophen 325 1 tablet PO Q6H PRN pain 3 days 10/03/23 12/07/23 Rx mg tablet #12 tabs Patient hx anesthesia problems: none Family hx anesthesia problems: none Results Review: All pre-operative results and documents have been reviewed as part of the pre-operative evaluation. 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 Pt is ex smoker, ex vaper, still drinks ETOH perhaps 6 beers/night. Apparent prev clinical exam was neg for Terrance danlos. Will proceed w sedation for attempted reduction of shoulder disolocation. Informed Consent: The patient's anesthetic plan and its attendant risks and benefits were discussed with the patient/family/POA. Questions were solicited and answers provided to the satisfaction of the patient/family/POA. This report may have been done utilizing a voice recognition system. Attempts have been made to correct errors. However, there may be uncorrected grammatical,spelling, and recognition errors present. Report Initialized date/time: Brenden Kaufman DO 07/08/24 / 1149 Electronically signed by: Brenden Kaufman DO 07/08/24 115
--- OUTSIDE RECORDS SUMMARY | 2024-08-13 05:08 | XMS_ITS ---
Author Organization [facility] [employer] [facility] Address [address] [place] [address] Care Team Providers Care Mechanism Assembler Name Role Phone Alcides, Yumiko Unavailable [phone] Social History Sex Assigned At : Social History Observation Description Sex Assigned At Male Encounters Encounter Location Date Provider Diagnosis [facility] [employer] [address] [facility] [address] [place] [address] 05/29/2024 Yumiko Mcgrath Plan Of Treatment No Information Progress Notes * GEORGIA KILLIANDOB:1985 (39 yo M)Acc No.[id number]:05/29/2024 Patient:?GEORGIA KILLIAN Provider:?JHON MOREIRA :1985???Age:39 Y???Sex:Male Carloz e:05/29/2024 Phone: Address:[address], [place] , [id number] Subjective: * Chief Complaints: * ??? * Medical History:? Objective: * Vitals:? Assessment: Plan: * Treatment: * Procedure Codes:?NS NO SHOW * Billing Information: * Visit Code:? * Procedure Codes:? NS NO SHOW. * Sign off status: Completed true * Provider:?JHON MOREIRA Date:? 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
--- OUTSIDE RECORDS SUMMARY | 2024-08-13 05:08 | XMS_ITS | Patient Health Record ---
Author Organization [facility] [employer] [facility] Address [address] [place] [address] Care Team Providers Care Wrapper Sheeter Name Role Phone AlcidesuYmiko Unavailable [phone] Reason For Referral No Information Social History Sex Assigned At : Social History Observation Description Sex Assigned At Male Encounters Encounter Location Date Provider Diagnosis [facility] [employer] [facility] [address] [place] [address] 05/29/2024 Yumiko Mcgrath Plan Of Treatment No Information Insurance Providers Payer Name Payer Address Payer Phone Subscriber Number Group Number Insured Name Patient Relationship to Insured Coverage Start Date Coverage End Date Aetna [address] [place] [phone] [id number] [employer] Self - patient is the insured
== END 2024-08-06 09:42 | disposition home or self-care (01) ==
PROVIDERS: Emergency Provider Emergency Medicine
DX: S43.015A Anterior dislocation of left humerus, initial encounter (principal); W06.XXXA Fall from bed, initial encounter; Z87.891 Personal history of nicotine dependence
CPT/HCPCS: 23650; 73030; 99285; J2704